=== PATIENT | female | born 1965 ===

== ENCOUNTER 2021-03-03 15:24 | Emergency (ER) | payer OTHER ==
[~2021-03-03] VITALS: Ht 175.3 cm; Wt 81.6 kg
[2021-03-03 16:29] VITALS: BP 138/89
[2021-03-03] MEDS ORDERED: LIDOCAINE HCL/PF 1% 30 ML VIAL TP ONE (17:30)
[2021-03-03] MEDS ORDERED: SULF1TAB48 PO (18:35)
[2021-03-03] MEDS ORDERED: CEPH500C2 PO (18:35)
--- NOTE | 2021-03-03 18:45 | NUR ---
Patient discharged to home in stable condition. Written and verbal after care instructions given. Patient verbalizes understanding of instruction.
== END 2021-03-03 18:45 | disposition home or self-care (01) ==
LOC: ER 15:32
DX: L03.012 Cellulitis of left finger (principal)
CPT/HCPCS: 10060; 99283; A6403; J3490